=== PATIENT | female | born 1930 | race Caucasian/White ===

== ENCOUNTER 2017-12-10 11:25 | Inpatient (IN) | payer MEDICARE ==
[~2017-12-10] VITALS: Ht 175.3 cm; Wt 45.5 kg
[~2017-12-10 11:25] MED LIST: ASPI81TA52 PO; FURO-150 PO; NITR0.4T51 SL; POTA10TA19 PO; TRAM50TA2 PO
[2017-12-10 12:24] LABS: CLARITY,URINE SLIGHTLY CLOUDY (Clear); COLOR,URINE YELLOW (Yellow); GLUCOSE, URINE NEGATIVE (Neg); KETONES,URINE NEGATIVE (Neg); LEUKOCYTE ESTERASE ,URINE NEGATIVE (Neg); NITRITES, URINE NEGATIVE (Neg); OCCULT BLOOD,URINE NEGATIVE (Neg); PH,URINE 5.5 (4.8-8.0); PROTEIN,URINE 30 mg/dl (Neg); UROBILINOGEN,URINE 0.2 E.U/dL (0.2-1.0)
[2017-12-10 12:26] LABS: BASOPHILS % (AUTO) 0 % (0-1); EOSINOPHILS # (AUTO) 0.2 X10'3 (0-0.9); EOSINOPHILS % (AUTO) 1.5 % (0-6); HEMATOCRIT 31.5 % (35.0-45.0); LYMPHOCYTES # (AUTO) 0.3 X10'3 (1.1-4.8); LYMPHOCYTES % (AUTO) 2.6 % (21-51); MEAN CORPUSCULAR HEMOGLOBIN 27.2 PG (27.0-31.0); MEAN CORPUSCULAR HGB CONC 31.8 % (33.0-36.5); MEAN CORPUSCULAR VOLUME 85.4 FL (78-98); MEAN PLATELET VOLUME 8.3 FL (7.4-10.4); MONOCYTES # (AUTO) 0.4 X10'3 (0-0.9); MONOCYTES % (AUTO) 4.1 % (2-12); NEUTROPHILS # (AUTO) 9.6 X10'3 (1.8-7.7); NEUTROPHILS % (AUTO) 91.8 % (42-75); PLATELET COUNT 323 X10'3 (140-440); RED BLOOD COUNT 3.68 X10'6 (4.20-5.60); RED CELL DISTRIBUTION WIDTH 20.5 % (11.5-14.5); WHITE BLOOD COUNT 10.4 X10'3 (4.5-11.0)
[2017-12-10 12:27] LABS: UA COLLECTION TYPE STRAIGHT CATH
[2017-12-10 12:37] LABS: INR 1.1 INR; PARTIAL THROMBOPLASTIN TIME 28 SECONDS (22-32); PROTHROMBIN TIME 11.3 SECONDS (9.0-12.0)
[2017-12-10 12:42] LABS: ALANINE AMINOTRANSFERASE 78 U/L (12-78); ALBUMIN 2.6 G/DL (3.4-5.0); ALBUMIN/GLOBULIN RATIO 0.5 (1.1-1.5); ALKALINE PHOSPHATASE 89 IU/L (46-116); ANION GAP 16 (8-16); ASPARTATE AMINO TRANSFERASE 57 U/L (10-37); BILIRUBIN,TOTAL 0.5 MG/DL (0.1-1.0); BLOOD UREA NITROGEN 105 MG/DL (7-18); BUN/CREATININE RATIO 34.9 (6.6-38.0); CALCIUM 9.2 MG/DL (8.5-10.1); CHLORIDE 102 MMOL/L (99-107); CREATININE 3.01 MG/DL (0.40-0.90); GLUCOSE 133 MG/DL (70-104); POTASSIUM 3.8 MMOL/L (3.5-5.1); SODIUM 138 MMOL/L (135-145); TOTAL CARBON DIOXIDE 20.1 MMOL/L (24-32); TOTAL PROTEIN 7.7 G/DL (6.4-8.2); eGFR 15 ML/MIN
[2017-12-10 12:42] LABS: MUCUS STRANDS FEW /LPF (Neg); SQUAMOUS EPITHELIAL CELL,UR MODERATE /LPF (FEW)
[2017-12-10 12:51] LABS: AMORPHOUS URATES 1+; BACTERIA,URINE FEW /HPF (Neg); TRANSITIONAL EPI CELLS,URINE FEW /HPF
[2017-12-10] MEDS ORDERED: ondansetron/PF 4mg/2ml inj IV ONE (13:05)
[2017-12-10] MEDS ORDERED: cefTRIAXone 1g/NS 100ml IVPB 100 ML IV ONE (13:25)
[2017-12-10] MEDS ORDERED: normal saline 1000ML IV soln IVB ONE (13:25)
[2017-12-10] MEDS ORDERED: vancomycin/NS 1 GM ADD-VANTAGE 250 ML X 1 DOSE IV ONE (13:30)
[2017-12-10] MEDS ORDERED: normal saline 1000ml 1,000 ML IV SCH (14:39)
[2017-12-10] MEDS ORDERED: HYDROcodone/acetaminophen 10/325mg tab PO PRN (14:40)
[2017-12-10] MEDS ORDERED: acetaminophen 325mg tablet PO PRN ×2 (14:40)
[2017-12-10] MEDS ORDERED: magnesium hydroxide 30ml (MOM) UD suspension PO PRN (14:40)
[2017-12-10] MEDS ORDERED: mag hydrox/Alum hydrox/simeth 30ml oral suspension PO PRN (14:40)
[2017-12-10] MEDS: HYDROcodone/acetaminophen 5mg/325mg tablet PO PRN ×2 (15:00→21:40)
[2017-12-10] MEDS ORDERED: nitroGLYCERIN 0.4mg SUBLingual tab SL PRN (17:30)
[2017-12-10 21:00] VITALS: BP 92/63
[2017-12-10] MEDS ORDERED: temazepam 15mg capsule PO PRN (21:00)
[2017-12-10] MEDS: heparin, porcine 5000 units/ml vial SQ SCH (21:40)
[2017-12-11] VITALS (24 sets, daily range): BP systolic 54–102; BP diastolic 39–71
[2017-12-11] MEDS ORDERED: amiodarone 150mg/dext, iso-os 100 ML IV ONE (00:35)
[2017-12-11] MEDS: amiodarone/D5 450MG/250ML BAG 250 ML IV SCH ×3 (01:42→09:55)
[2017-12-11] MEDS: VANCOMYCIN LEVEL IV SCH (03:00)
[2017-12-11 05:42] LABS: BASOPHILS % (AUTO) 0 % (0-1); EOSINOPHILS # (AUTO) 0.1 X10'3 (0-0.9); EOSINOPHILS % (AUTO) 1.1 % (0-6); HEMATOCRIT 31.9 % (35.0-45.0); LYMPHOCYTES # (AUTO) 0.4 X10'3 (1.1-4.8); LYMPHOCYTES % (AUTO) 3.1 % (21-51); MEAN CORPUSCULAR HEMOGLOBIN 26.7 PG (27.0-31.0); MEAN CORPUSCULAR HGB CONC 31.3 % (33.0-36.5); MEAN CORPUSCULAR VOLUME 85.2 FL (78-98); MEAN PLATELET VOLUME 8.5 FL (7.4-10.4); MONOCYTES # (AUTO) 0.7 X10'3 (0-0.9); MONOCYTES % (AUTO) 5.5 % (2-12); NEUTROPHILS # (AUTO) 10.7 X10'3 (1.8-7.7); NEUTROPHILS % (AUTO) 90.3 % (42-75); PLATELET COUNT 319 X10'3 (140-440); RED BLOOD COUNT 3.74 X10'6 (4.20-5.60); RED CELL DISTRIBUTION WIDTH 20.7 % (11.5-14.5); WHITE BLOOD COUNT 11.9 X10'3 (4.5-11.0)
[2017-12-11] MEDS ORDERED: vancomycin/NS 1 GM ADD-VANTAGE 250 ML IV PRN (06:00)
[2017-12-11 06:02] LABS: ALANINE AMINOTRANSFERASE 104 U/L (12-78); ALBUMIN 2.3 G/DL (3.4-5.0); ALBUMIN/GLOBULIN RATIO 0.5 (1.1-1.5); ALKALINE PHOSPHATASE 100 IU/L (46-116); ANION GAP 16 (8-16); ASPARTATE AMINO TRANSFERASE 87 U/L (10-37); BILIRUBIN,TOTAL 0.6 MG/DL (0.1-1.0); BLOOD UREA NITROGEN 103 MG/DL (7-18); BUN/CREATININE RATIO 34.2 (6.6-38.0); CALCIUM 8.9 MG/DL (8.5-10.1); CHLORIDE 103 MMOL/L (99-107); CREATININE 3.01 MG/DL (0.40-0.90); GLUCOSE 139 MG/DL (70-104); POTASSIUM 4.5 MMOL/L (3.5-5.1); SODIUM 139 MMOL/L (135-145); TOTAL CARBON DIOXIDE 20.1 MMOL/L (24-32); TOTAL PROTEIN 7.1 G/DL (6.4-8.2); VANCOMYCIN,RANDOM 11.9 UG/ML; eGFR 15 ML/MIN
[2017-12-11] MEDS ORDERED: non-formulary drug (Potassium Chloride (Klor-Con) 1 TAB) PO SCH (08:00)
[2017-12-11] MEDS ORDERED: potassium chloride 10mEq ER tablet PO SCH (08:00)
[2017-12-11] MEDS ORDERED: cefTRIAXone 1g/NS 100ml IVPB 100 ML IV SCH (08:00)
[2017-12-11] MEDS: aspirin 81mg tablet.DR PO SCH (08:30)
[2017-12-11] MEDS: pantoprazole 40mg Tablet.DR PO SCH (08:30)
[2017-12-11] MEDS: heparin, porcine 5000 units/ml vial SQ SCH ×2 (08:32→21:09)
[2017-12-11] MEDS: furosemide 20 MG/2 ML vial IV SCH (08:32)
[2017-12-11] MEDS ORDERED: vancomycin/NS 1 GM ADD-VANTAGE 250 ML IV ONE (13:00)
[2017-12-11 18:21] LABS: CREATININE,URINE RANDOM 93.9 MG/DL; SODIUM,URINE RANDOM < 15 MEQ/L; TOTAL PROTEIN,URINE RANDOM 85.2 MG/DL
[2017-12-12] VITALS (9 sets, daily range): BP systolic 90–108; BP diastolic 45–76
[2017-12-12] MEDS: ondansetron/PF 4mg/2ml inj IV PRN ×2 (01:19→10:05)
[2017-12-12] MEDS: VANCOMYCIN LEVEL IV SCH (03:16)
[2017-12-12] MEDS: HYDROcodone/acetaminophen 5mg/325mg tablet PO PRN (04:33)
[2017-12-12 05:15] LABS: BASOPHILS % (AUTO) 0 % (0-1); EOSINOPHILS % (AUTO) 0 % (0-6); HEMATOCRIT 31.1 % (35.0-45.0); HEMOGLOBIN 9.9 g/dl (12.0-16.0); LYMPHOCYTES # (AUTO) 0.3 X10'3 (1.1-4.8); LYMPHOCYTES % (AUTO) 1.7 % (21-51); MEAN CORPUSCULAR HEMOGLOBIN 27.2 PG (27.0-31.0); MEAN CORPUSCULAR HGB CONC 31.9 % (33.0-36.5); MEAN CORPUSCULAR VOLUME 85.1 FL (78-98); MEAN PLATELET VOLUME 8.8 FL (7.4-10.4); MONOCYTES # (AUTO) 0.8 X10'3 (0-0.9); MONOCYTES % (AUTO) 4.9 % (2-12); NEUTROPHILS % (AUTO) 93.4 % (42-75); PLATELET COUNT 266 X10'3 (140-440); RED BLOOD COUNT 3.65 X10'6 (4.20-5.60); RED CELL DISTRIBUTION WIDTH 20.8 % (11.5-14.5); WHITE BLOOD COUNT 17.2 X10'3 (4.5-11.0)
[2017-12-12 05:36] LABS: ALBUMIN 2.2 G/DL (3.4-5.0); ALBUMIN/GLOBULIN RATIO 0.5 (1.1-1.5); ALKALINE PHOSPHATASE 109 IU/L (46-116); ANION GAP 19 (8-16); BLOOD UREA NITROGEN 111 MG/DL (7-18); BUN/CREATININE RATIO 28.8 (6.6-38.0); CALCIUM 8.9 MG/DL (8.5-10.1); CHLORIDE 100 MMOL/L (99-107); CREATININE 3.85 MG/DL (0.40-0.90); SODIUM 133 MMOL/L (135-145); TOTAL PROTEIN 6.9 G/DL (6.4-8.2); VANCOMYCIN,RANDOM 20.8 UG/ML; eGFR 11 ML/MIN
[2017-12-12 06:07] LABS: ALANINE AMINOTRANSFERASE 1925 U/L (12-78); ASPARTATE AMINO TRANSFERASE 3326 U/L (10-37); GLUCOSE 92 MG/DL (70-104)
[2017-12-12 06:09] LABS: POTASSIUM 6.1 MMOL/L (3.5-5.1); TOTAL CARBON DIOXIDE 14.1 MMOL/L (24-32)
[2017-12-12] MEDS ORDERED: sodium polystyrene sulfonate 15gm/60ml oral suspension PO ONE ×2 (09:30→09:43)
[2017-12-12] MEDS ORDERED: CALCIUM GLUCONATE 1 GM in NORMAL SALINE 100ml IV.SOLN IV ONE (09:45)
[2017-12-12] MEDS: aspirin 81mg tablet.DR PO SCH (09:58)
[2017-12-12] MEDS: pantoprazole 40mg Tablet.DR PO SCH (09:58)
[2017-12-12] MEDS: heparin, porcine 5000 units/ml vial SQ SCH (09:59)
[2017-12-12] MEDS: furosemide 20 MG/2 ML vial IV SCH (10:13)
[2017-12-12 18:03] LABS: UREA NITROGEN 24HR,URINE 3.2 GM/24HR (7-20)
[2017-12-13] MEDS: VANCOMYCIN LEVEL IV SCH (03:00)
[2017-12-13] MEDS: aspirin 81mg tablet.DR PO SCH (08:00)
[2017-12-13] MEDS: furosemide 20 MG/2 ML vial IV SCH (08:00)
[2017-12-13] MEDS: pantoprazole 40mg Tablet.DR PO SCH (08:59)
[2017-12-13 12:13] VITALS: BP 91/38
[2017-12-13] MEDS ORDERED: morphine ORAL 5MG/0.25 ML (Conc. morphine) oral syringe PO PRN (15:15)
[2017-12-13] MEDS: morphine 10mg/0.5ml (conc. morphine) oral syringe PO PRN ×2 (15:49→23:44)
[2017-12-13 20:30] VITALS: BP 86/40
[2017-12-14] MEDS: HYDROmorphone inj. 0.5 MG/0.5 ML DISP.SYRIN IV PRN ×2 (00:37→18:01)
[2017-12-14 07:00] VITALS: BP 80/38
[2017-12-14] MEDS ORDERED: FERR325T7 (10:09)
[2017-12-14] MEDS ORDERED: TRAM50TA2 (10:09)
[2017-12-14] MEDS: morphine 10mg/0.5ml (conc. morphine) oral syringe PO PRN (15:01)
[2017-12-14 16:29] VITALS: BP 62/39
[2017-12-14 18:30] VITALS: BP 59/26
== END 2017-12-15 04:00 | disposition expired | DRG 871 ==
LOC: ER 11:25 → ED HOLD 14:39 → PCU 3S 20:15
PROVIDERS: ADMIT Internal Medicine; ATTEND Family Medicine
DX: A41.9 Sepsis, unspecified organism (principal); I50.23 Acute on chronic systolic (congestive) heart failure; N17.9 Acute kidney failure, unspecified; J18.9 Pneumonia, unspecified organism; I95.9 Hypotension, unspecified; I48.91 Unspecified atrial fibrillation; N18.6 End stage renal disease; J44.0 Chronic obstructive pulmonary disease with (acute) lower respiratory infection; L03.115 Cellulitis of right lower limb; L03.116 Cellulitis of left lower limb; R63.0 Anorexia; D63.8 Anemia in other chronic diseases classified elsewhere; I35.0 Nonrheumatic aortic (valve) stenosis; I25.10 Atherosclerotic heart disease of native coronary artery without angina pectoris; I73.9 Peripheral vascular disease, unspecified; G89.29 Other chronic pain; Z51.5 Encounter for palliative care; Z66 Do not resuscitate; Z79.82 Long term (current) use of aspirin; Z79.899 Other long term (current) drug therapy
CPT/HCPCS: 36415; 71045; 80053; 80202; 81001; 82570; 83605; 83880; 84145; 84156; 84300; 84560; 85025; 85610; 85651; 85730; 86140; 87040; 87070; 87088; 87502; 87503; 93005; 93306; 93922; 96365; 96366; 96367; 96375; 97110; 97161; 97530; 99285; A4315; A6213; A6223; A6253; A6446; A9270; J0282; J0610; J0696; J1170; J1644; J1940; J2270; J2405; J3370; J7030